=== PATIENT | male | born 1950 | race Caucasian/White ===

== ENCOUNTER 2017-01-10 13:58 | Inpatient (IN) | payer MEDICARE, OTHER ==
--- NOTE | ~2017-01-10 | DS ---
Discharge Summary [id number] [place]. [address] NAME: TRICIA LUZ : 46 STATUS : DIS IN PAT#: [id number] AGE: 66 ADM/REG DATE : 01/10/17 MR#: [id number] REPORT SERV DATE: 01/27/17 DICTATED BY: TOREY RIVERA DATE: 01/27/17 REPORT STATUS : Draft TRANSCRIBED BY: MODL DATE: 01/27/17 ADMISSION DATE: 01/10/2017 DISCHARGE DATE: 01/11/2017 This will be a brief summary since the patient within slightly 24 hours of admission and has progress notes and documentation on the day of admission and the day of expiration including cross coverage at night and a progress note on the day of expiration. Mr. Luz was an unfortunate 66-year-old man with multiple medical problems, most significantly chronic encephalopathy, VRE infection, urinary tract infection which is recurrent, atrial fibrillation, systolic congestive heart failure, coronary artery disease, ischemic cardiomyopathy, DVT, hypertension, cerebrovascular disease, lumbar wound infection with MRSA, anemia, chronic cholangitis, asthma, peripheral vascular disease, coronary artery bypass graft surgery in the past, lumbar fusion, and acute kidney injury. The patient had spontaneous bacterial peritonitis and severe sepsis, was made comfort measures and on 01/11/2017. CONDITION AT DISCHARGE: . The patient was kept comfortable. JERRY/JIHAN Torey Rivera M.D. / [id number] CC: Dylan Lee Azhar S.
--- NOTE | ~2017-01-10 | HP ---
History And Physical [id number] [facility]. [address] NAME: TRICIA LUZ : 46 STATUS : ADM IN [facility]#: [id number] AGE: 66 ADM/REG DATE : 01/10/17 MR#: [id number] REPORT SERV DATE: 01/10/17 DICTATED BY: OSMANI GUZMAN DATE: 01/10/17 REPORT STATUS : Draft TRANSCRIBED BY: MODL DATE: 01/10/17 DATE OF ADMISSION: 01/10/2017 HISTORY OF PRESENT ILLNESS: This is a 66-year-old patient whom I was asked to admit by the ER physician, Dr. Payne. The patient was recently discharged from rehab at the end of November and has been home, but has slowly developed a fever. The patient normally runs a temperature that is low about 95 to 96. Apparently, he was noted to have an increase in temperature, became less responsive, and was brought into the ER, was found hypotensive with a blood pressure of 72/35, was given 2 L of IV fluid with additional fluid after he was seen by the [facility] Service. He has an 18-gauge IV and was pancultured except for sputum and started on vancomycin. According to the , he has not had any nausea, vomiting, or diarrhea, but has developed hematuria and currently is on a 3-way irrigation system for his hematuria since his Osullivan has a tendency to clot secondary to that. The patient also has a known history of multidrug resistant with Enterococcus faecalis VRE, sensitive only to daptomycin, has Gent synergy, and is sensitive to Zyvox. So in this case, we have consulted ID and will start daptomycin for this evening. ALLERGIES: THE PATIENT IS ALLERGIC TO PENICILLIN. MEDICATIONS: His home dose of medications are amiodarone at 200 mg twice a day, Ilia aspirin 325 mg p.o. daily, Lipitor 40 mg at bedtime, baclofen 5 mg q.8 hours p.r.n., Tums, Zyrtec 10 mg p.o. daily, vitamin D 1000 units p.o. daily, doxycycline 100 mg p.o. b.i.d., Cymbalta 30 mg twice daily, Lasix 20 mg p.o. daily, Mucinex, levothyroxine 50 mcg before breakfast, Linzess 290 mcg p.o. daily, Reglan 10 mg before meals, Lopressor 12.5 mg p.o. b.i.d., ProAmatine or midodrine 5 mg three times daily, Singulair 10 mg at bedtime, Nitrostat 0.4 mg sublingual p.r.n. chest pain, Zofran 4 mg before meals, Protonix 40 mg p.o. daily, Klor-Con 20 mEq daily, Serevent 1 inhalation twice daily, and Coumadin 2.5 mg every evening. PAST MEDICAL HISTORY: Significant for: 1. Numerous admissions for encephalopathy. 2. Urinary tract infection, recurrent, follows with Dr. Sinha. 3. Atrial fibrillation, on Coumadin. 4. Systolic heart failure. Ejection fraction of 25%. 5. Coronary artery disease. 6. Ischemic cardiomyopathy. 7. DVT. 8. Hypertension. 9. Cerebellar stroke. 10.Lumbar wound infection with MRSA. 11.Iron-deficiency anemia. 12.Chronic cholangitis. 13.Asthma. 14.Peripheral arterial disease. 15.Status post coronary bypass grafting. 16.Lumbar fusion. History And Physical [address] [address] NAME: TRICIA LUZ : 46 STATUS : ADM IN [facility]#: [id number] AGE: 66 ADM/REG DATE : 01/10/17 MR#: [id number] REPORT SERV DATE: 01/10/17 DICTATED BY: OSMANI GUZMAN DATE: 01/10/17 REPORT STATUS : Draft TRANSCRIBED BY: JIHAN DATE: 01/10/17 17.The patient was admitted to the hospital on 08/2016. After he spent quite a bit of time in the hospital in May and June for MRI same wound infection of a postsurgical back site. He was then discharged to rehab and then developed functional paraplegia and needed to be Re admitted. MRI was done and showed positive fluid collection at L3-L4, possible diskitis. 18.Acute kidney injury. 19.Previous history of hematuria. SOCIAL HISTORY: No tobacco abuse. There is no recent alcohol use. He is . Retired building construction ironworker and has no children. FAMILY HISTORY: Significant for coronary artery disease. REVIEW OF SYSTEMS: Could not be obtained from the patient since he is encephalopathic and septic. PHYSICAL EXAMINATION: VITAL SIGNS: In the emergency room, temperature is 97.7, blood pressure is 72/35, blood pressure is 97/50 at this point, heart rate is in the 120s, respiratory rate is approximately 20 to 24 breaths per minute, and O2 saturation is 100% on 15 L. GENERAL: The patient appears ill. He is barely responsive. Can open his eyes, but does not really follow commands or answer questions appropriately. SKIN: Warm and dry. HEENT: Head is atraumatic and normocephalic. Pupils are sluggish, but equal. Sclerae anicteric. Conjunctivae pink. Nasal mucosa is within normal limits. Oral mucosa is moist. Tongue is midline. NECK: Supple without JVD, lymphadenopathy, or thyromegaly. RESPIRATORY: Lungs are diminished at the bases without wheezes. CARDIAC: Reveals an irregularly irregular rhythm. No significant murmurs are heard. ABDOMEN: Mildly obese, nondistended, nontender with decreased bowel sounds. GENITOURINARY: Osullivan is in place with scant amount of blood around the urethral meatus. RECTAL: Exam was deferred. EXTREMITIES: Without cyanosis, clubbing, with trace edema. NEUROLOGIC: Difficult to evaluate secondary to the patient's mental status. He does withdraw to pain, but has limited range of motion of the lower extremities and has significant arthritic changes. Pulses are palpable but markedly diminished. LABORATORY DATA: White cell count is 1.9, hemoglobin is 12, hematocrit is 38, and platelet count is a 191,000, bands are 7, segs are 80%. INR is 2.8. PTT is 30. Procalcitonin is 3.86. Sodium is 141, potassium 4.5, chloride 106, bicarb 26, BUN 32, creatinine 1.61. Calcium 9.3. Alkaline phosphatase is 131, AST is 61. Urinalysis is floridly positive and urine culture is pending. Lactic acid level is 5.8. Chest x-ray shows no infiltrates, hardware from previous back surgery. ASSESSMENT AND PLAN: 1. This is a 66-year-old patient with multiple medical problems, currently a full DNR, who History And Physical [address] [address] NAME: TRICIA LUZ : 46 STATUS : ADM IN [facility]#: [id number] AGE: 66 ADM/REG DATE : 01/10/17 MR#: [id number] REPORT SERV DATE: 01/10/17 DICTATED BY: OSMANI GUZMAN DATE: 01/10/17 REPORT STATUS : Draft TRANSCRIBED BY: MODMalcolm DATE: 01/10/17 presents more than likely with urosepsis and has known history of multidrug resistant VRE. Blood cultures have been sent. Urine culture is pending. The patient will be started on daptomycin at least for overnight pending a consult to Dr. Sinha in the morning. Code status has been discussed with the patient's family, his , and the patient currently is a full DNR. They did not wish placement of a central line but are okay with a PICC line if needed. The patient currently has adequate IV access and so we will defer the PICC line for the morning. 2. Chronic atrial fibrillation, stable at this point. 3. Check daily PT/INR and follow the INR. Currently, he does not need anymore Coumadin and is doubtful that he can take any oral medications. 4. The patient currently is hypotensive and will not need any further antihypertensive medications. In fact, most of his p.o. medicines will be on hold since he is not able to take p.o. 5. Hematuria, chronic catheter related. He is going to be on 3-way Osullivan irrigation mostly to prevent clotting of the blood in the Osullivan. 6. Functional paraplegia. The patient will not need DVT prophylaxis since his INR is therapeutic. We will turn the patient frequently to avoid decubitus ulcers. 7. History of chronic cholelithiasis, which is stable. The patient is in critical condition. Total time spent with the patient was 60 minutes commencing at 6 p.m. and ending at 7 p.m. /MODL Osmani Guzman M.D. / [id number] CC: WESLEY BLUNT
[~2017-01-10 13:58] MED LIST: 8 HOUR650 MG PO; ACET500CAP PO; ALLEGRA180 PO; ASA5GR PO; ASAB PO; BISR PR; BUM1 PO; C1 PO; C25 PO; CALTRA600D PO; CENTRUM PO; CO Q-10200 MG PO; COCONUT OIL 1000 MG PO; CONSTULOSE PO; CORDARONE PO; CRESTOR10 PO; CYMBALTA30 PO; CYMBALTA60 PO; DSS PO; DUONEB INH; DURA50 TOP; FLORINEF0.1 MG PO; GGDM5ML PO; GGEXPSF PO; HALF81 PO; IMOD PO; JANTOVEN4 MG PO; K500 PO; KAOPECTATE262 MG/15 PO; KLOR-CON 1010 MEQ PO; KLOR-CON M2020 MEQ PO; L40 PO; LACT30UDL PO; LEVAQUIN750 MG PO; LEVOTHYROXIN50 MCG PO; LIDODERM T; LIPITOR20 PO; LIPITOR40 PO; LOP25 PO; MAALOX PO; MENTHOL TOP; METHOC750B PO; MIRALAXPKT PO; MOMUD PO; MUCINEX600 MG PO; NITROQUICK0.4 MG SL; NYS500UDL PO; OS500+D PO; PACERONE400 MG PO; PCET PO; PEPTO BISMOL UD30 ML PO; PR25R PR; PREVALITE4 G1 PO; PROAMAT5 PO; PROTONIX PO; PULRESP.5 INH; REMERON30 MG PO; SEREVDISC INH; SINGULAIR1 PO; T PO; TESSALON200 MG PO; ULTRAM50 PO; VANCO1P IV; VENTOLIN HFA INH; VESICARE10 MG PO; ZINC OXIDE TOP; ZOFRAN ODT4 MG SL; ZOFRAN4 PO; ZYRTEC ALLGY10 MG PO
[2017-01-10 14:48] LABS: BASOPHILS 0 %; EOSINOPHILS 0 %; IMMATURE GRANULOCYTES 3.7 %; IMMATURE GRANULOCYTES ABSOLUTE 0.07 10/3/uL (0.0-0.11); LYMPHOCYTES 10.1 %; LYMPHOCYTES ABSOLUTE 0.19 10/3/uL (0.67-4.30); MEAN CORPUS HGB CONC 32.3 g/dL (32.0-36.0); MEAN PLATELET VOLUME 9.2 fL (9.2-13.0); MONOCYTES 1.1 %; MONOCYTES ABSOLUTE 0.02 10/3/uL (0.21-1.20); NEUTROPHILS 85.1 %; RBC DISTRIBUTION WIDTH 15.2 % (12.0-16.0)
[2017-01-10 14:55] LABS: INTERNATIONAL NORMAL RATI 2.8 UNITS (-); PARTIAL THROMBO TIME 30.9 SEC (22.5-37.2)
[2017-01-10 14:56] LABS: PROTIME (NOT ORD) 29.6 SEC (12.0-14.5)
[2017-01-10 15:03] LABS: A/G RATIO 0.7 (0.7-1.9); ALBUMIN 2.7 G/DL (3.5-5.0); CALCIUM, SERUM 9.3 MG/DL (8.5-10.4); CHLORIDE, SERUM 106 MMOL/L (96-112); CO2 (CARBON DIOXIDE) 26 MMOL/L (24-34); GLOBULIN 3.7 G/DL (2.5-4.1); SGPT(ALT) 50 U/L (5-65); SODIUM, SERUM 141 MMOL/L (135-148); TOTAL BILIRUBIN 0.9 MG/DL (0-1.2); TOTAL PROTEIN 6.4 G/DL (6.0-8.5)
[2017-01-10 15:05] LABS: ALKALINE PHOSPHATASE 131 U/L (45-117); BUN (BLOOD UREA NITROGEN) 32 MG/DL (6-23); CREATININE 1.61 MG/DL (0.70-1.30); GFR AFRICAN AMERICAN 50 ML/MIN (>=60); GFR NON AFRICAN AMERICAN 43 ML/MIN (>=60); GLUCOSE, SERUM 59 MG/DL (60-99); POTASSIUM, SERUM 4.5 MMOL/L (3.5-5.3); SGOT(AST) 67 U/L (5-40)
[2017-01-10 15:09] LABS: ER CBC TAT 0 Hrs 26 Mins; HEMATOCRIT 38.1 % (40.0-51.0); HEMOGLOBIN 12.3 g/dL (13.6-17.8); LACTATE 5.8 MMOL/L (0.3-2.4); MEAN CORPUSCULAR HEMOGLOB 30.8 pg (26.0-34.0); MEAN CORPUSCULAR VOLUME 95.3 fL (80-100); PLATELET COUNT 191 10/3/uL (150-400); WHITE BLOOD CELLS 1.9 10/3/uL (4.5-10.5)
[2017-01-10 15:10] LABS: MANUAL DIFF NO %
[2017-01-10 15:25] LABS: ASCORBIC ACID (UR NOT ORDER) NEG (NEG); BILIRUBIN, URINE NEGATIVE (NEG); ER URINALYSIS TAT 0 Hrs 20 Mins; KETONE, URINE NEGATIVE (NEG); LEUKOCYTE ESTERASE(NOT OR MOD (NEG); NITRITE (URINE) NEG (NEG); WBC (NOT ORDERED) (RFLEX) 79 (0-5)
[2017-01-10 15:35] LABS: PROCALCITONIN 3.86 ng/mL (<0.5)
[2017-01-10 15:45] LABS: BAND NEUTROPHILS 7 %; EOSINOPHILS 2 %; EOSINOPHILS ABSOLUTE (CALC) 0.04 10/3/uL (0.0-0.53); ER DIFF TAT 1 Hrs 02 Mins; LYMPHOCYTES 11 %; LYMPHOCYTES ABSOLUTE (CALC) 0.21 10/3/uL (0.67-4.30); NEUTROPHILS ABSOLUTE (CALC) 1.65 10/3/uL (2.02-8.40); SEGMENTED NEUTROPHIL (0) 80 %; TOTAL NUCLEATED CELLS 100
[2017-01-10 15:46] LABS: PLATELET ESTIMATE ADQ (ADEQUATE); RBC MORPHOLOGY NORM (NORMAL)
[2017-01-10] MEDS ORDERED: SYN.05 PO (17:37)
[2017-01-10] MEDS ORDERED: TUMSROLL PO (17:38)
[2017-01-10] MEDS ORDERED: CYMBALTA30 PO (17:38)
[2017-01-10] MEDS ORDERED: VIBRATAB100 MG PO (17:38)
[2017-01-10] MEDS ORDERED: L20 PO (17:39)
[2017-01-10] MEDS ORDERED: MUCINEX600 MG PO (17:44)
[2017-01-10] MEDS ORDERED: ZOFRAN4 PO (17:46)
[2017-01-10] MEDS ORDERED: LINZESS 290 M290 MCG PO (17:46)
[2017-01-10] MEDS ORDERED: PROTONIX PO (17:47)
[2017-01-10] MEDS ORDERED: KLOR-CON M2020 MEQ PO (17:47)
[2017-01-10] MEDS ORDERED: CORDARONE PO (17:48)
[2017-01-10] MEDS ORDERED: REG PO (17:48)
[2017-01-10] MEDS ORDERED: LIOR10 PO (17:49)
[2017-01-10] MEDS ORDERED: LOP25 PO (17:49)
[2017-01-10] MEDS ORDERED: PROAMAT5 PO (17:50)
[2017-01-10] MEDS ORDERED: ASABAYER PO (17:50)
[2017-01-10] MEDS ORDERED: LIPITOR40 PO (17:51)
[2017-01-10] MEDS ORDERED: C25 PO (17:51)
[2017-01-10] MEDS ORDERED: VITAMIN D1000 UNI1 PO (17:52)
[2017-01-10] MEDS ORDERED: NITROSTAT0.4 MG SL (17:52)
[2017-01-10] MEDS ORDERED: SINGULAIR1 PO (17:52)
[2017-01-10] MEDS ORDERED: SEREVDISC INH (17:53)
[2017-01-10] MEDS ORDERED: ZYRTEC ALLGY10 MG PO (17:53)
== END 2017-01-11 16:18 | disposition expired | DRG 698 ==
LOC: ER 13:58 → CCU 19:38
PROVIDERS: Emergency Medicine
DX: T83.518A Infection and inflammatory reaction due to other urinary catheter, initial encounter (principal); A41.9 Sepsis, unspecified organism; R65.21 Severe sepsis with septic shock; G93.40 Encephalopathy, unspecified; K80.10 Calculus of gallbladder with chronic cholecystitis without obstruction; I50.22 Chronic systolic (congestive) heart failure; N39.0 Urinary tract infection, site not specified; I48.2 Chronic atrial fibrillation; F44.4 Conversion disorder with motor symptom or deficit; Z51.5 Encounter for palliative care; Z66 Do not resuscitate; R31.9 Hematuria, unspecified; R62.7 Adult failure to thrive; I73.9 Peripheral vascular disease, unspecified; J45.909 Unspecified asthma, uncomplicated; I25.10 Atherosclerotic heart disease of native coronary artery without angina pectoris; I25.5 Ischemic cardiomyopathy; M19.90 Unspecified osteoarthritis, unspecified site; Z88.0 Allergy status to penicillin; Z79.899 Other long term (current) drug therapy; Z79.82 Long term (current) use of aspirin; Z87.440 Personal history of urinary (tract) infections; Z79.01 Long term (current) use of anticoagulants; Z86.718 Personal history of other venous thrombosis and embolism; Z86.73 Personal history of transient ischemic attack (TIA), and cerebral infarction without residual deficits; Z86.14 Personal history of Methicillin resistant Staphylococcus aureus infection; Z95.5 Presence of coronary angioplasty implant and graft; Z98.890 Other specified postprocedural states; Z82.49 Family history of ischemic heart disease and other diseases of the circulatory system; K74.3 Primary biliary cirrhosis
CPT/HCPCS: 36415; 71010; 80053; 81001; 83605; 84145; 85025; 85610; 85730; 86850; 86900; 86901; 86920; 87040; 87077; 87086; 87150; 87186; 96361; 96365; 96366; 96367; 96368; 99291; J0878; J2930; J3370; P9045